=== PATIENT | female | born 1975 | race African-American/Black ===

== ENCOUNTER 2022-10-21 21:24 | Emergency (ER) | payer SELFPAY ==
[~2022-10-21] VITALS: Ht 149.9 cm; Wt 77.1 kg
[2022-10-21] MEDS ORDERED: IBUPROFEN 400 MG TAB ONE (21:59)
[2022-10-21] MEDS ORDERED: IBUPROFEN 400 MG TAB PO ONE (22:15)
[2022-10-21] MEDS ORDERED: HYDROCODONE/APAP 5MG-325MG TAB PO ONE (23:15)
[2022-10-21] MEDS ORDERED: HYDROCODONE/APAP 5MG-325MG TAB ONE (23:30)
[2022-10-21] MEDS ORDERED: CEFDINIR300 MG PO (23:34)
[2022-10-21] MEDS ORDERED: CORTISPORIN-TC10 M1 LEFT EAR (23:36)
[2022-10-21] MEDS ORDERED: HYDROCODON-ACE1 EA12 PO (23:37)
[2022-10-21 23:50] VITALS: O2SAT 97
== END 2022-10-22 00:07 | disposition home or self-care (01) ==
LOC: FSED 21:35
DX: H66.92 Otitis media, unspecified, left ear (principal); H72.92 Unspecified perforation of tympanic membrane, left ear
CPT/HCPCS: 83518; 87400; 99283